=== PATIENT | female | born 1950 | race Two or more races ===

== ENCOUNTER 2021-10-25 16:20 | Outpatient (CLI) | payer OTHER | END 2021-10-25 16:22 | disposition home or self-care (01) | LOC: SONOGRAMA 16:20 | PROVIDERS: ATTEND Pathology Anatomic Pathology & Clinical Pathology | DX: E04.1 Nontoxic single thyroid nodule (principal); E07.9 Disorder of thyroid, unspecified; D34 Benign neoplasm of thyroid gland; E04.9 Nontoxic goiter, unspecified ==